=== PATIENT | male | born 1980 | race African-American/Black ===

== ENCOUNTER 2018-07-31 07:35 | Emergency (ER) | payer OTHER ==
[2018-07-31 07:47] VITALS: BP 127/85
[2018-07-31] MEDS ORDERED: IBUPROFEN 600 MG TABLET PO ONE (08:24)
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
== END 2018-07-31 08:33 | disposition home or self-care (01) ==
LOC: ER 07:35
DX: M54.5 Low back pain (principal); M54.2 Cervicalgia; M79.602 Pain in left arm; V43.52XA Car driver injured in collision with other type car in traffic accident, initial encounter
CPT/HCPCS: 99283